=== PATIENT | female | born 2000 | race Asian ===

== ENCOUNTER 2020-01-20 19:44 | Emergency (ER) | payer OTHER ==
[2020-01-20 19:54] VITALS: BP 131/96
--- NOTE | 2020-01-20 22:00 | ED ---
Abdominal Pain/Female - HPI Summary HPI Summary: This pt is a 19 Y/O F presenting to [facility] with a CC of abdominal pain after being sent here from [facility] due to her laboratory results from 2019. She states that on 01/17/2020 she had abdominal cramping that increased by where she states that she was unable to stand correctly. The pain came slowly throughout the day began to dissipate on 01/19/2020. She states that on 01/16 she didnt eat but states that her appetite has returned on 01/18/2020. She states that when she walks or coughs the pain is increased. She reports that she used antacids on 01/18/2020 without good effect. She states that she has had fevers intermittently and has developed urinary symptoms such as dysuria that began today. She denies any PMHx that is pertinent. She has no aggravating or alleviating factors. Her LKMP was 2 weeks ago and was longer than usual. - History of Current Complaint Chief Complaint: Ekaterinain Stated Complaint: GENERAL PER PT Time Seen by Provider: 01/20/20 21:28 Hx Obtained From: Patient Hx Last Menstrual Period: 2 weeks ago ?: No Onset/Duration: Gradual Onset, Lasting Days - 4, Still Present - states pain only with coughing Timing: Constant Severity Initially: Severe Severity Currently: None Pain Intensity: 0 Pain Scale Used: 0-10 Numeric Location: Diffuse Radiates: No Character: Cramping Aggravating Factor(s): Movement Alleviating Factor(s): Nothing Associated Signs and Symptoms: Positive: Negative - headaches, SOB, Fever, Cough , Urinary Symptoms. Negative: Chest Pain, Nausea, Vomiting, Diarrhea Allergies/Adverse Reactions: Allergies Allergy/AdvReac Type Severity Reaction Status Date / Time No Known Allergies Allergy Verified 01/20/20 19:54 PMH/Surg Hx/FS Hx/Imm Hx Previously Healthy: Yes Endocrine/Hematology History: Denies: Hx Diabetes Cardiovascular History: Denies: Hx Cardiac Arrest Respiratory History: Denies: Hx Sleep Apnea Sensory History: Reports: Hx Contacts or Glasses Opthamlomology History: Reports: Hx Contacts or Glasses - Cancer History Hx Chemotherapy: No Hx Radiation Therapy: No - Surgical History Surgical History: None - Immunization History Immunizations Up to Date: Yes Infectious Disease History: No Infectious Disease History: Denies: Traveled Outside the [place] in Last 30 Days - Family History Known Family History: Negative: Hypertension, Diabetes - Social History Occupation: Student - [employer] Lives: Dormitory/Roommates Alcohol Use: Rare Hx Substance Use: No Substance Use Type: Reports: None Hx Tobacco Use: No Smoking Status (MU): Never Smoked Tobacco Review of Systems Positive: Fever Negative: Chest Pain Positive: Cough. Negative: Shortness Of Breath Positive: Abdominal Pain. Negative: Vomiting, Diarrhea, Nausea Positive: dysuria Negative: Headache All Other Systems Reviewed And Are Negative: Yes Physical Exam - Summary Physical Exam Summary: Constitutional: Well-developed, Well-nourished, Alert. (-) Distressed Skin: Warm, Dry HENT: Normocephalic; Atraumatic Eyes: Conjunctiva normal Neck: Musculoskeletal ROM normal neck. (-) JVD, (-) Stridor, (-) Tracheal deviation Cardio: Rhythm regular, rate normal, Heart sounds normal; Intact distal pulses; The pedal pulses are 2+ and symmetric. Radial pulses are 2+ and symmetric. (-) Murmur Pulmonary/Chest wall: Effort normal. (-) Respiratory distress, (-) Wheezes, (-) Rales Abd: Soft, (-) tenderness, (-) Distension, (-) Guarding, (-) Rebound Musculoskeletal: (-) Edema Lymph: (-) Cervical adenopathy Neuro: Alert, Oriented x3 Psych: Mood and affect Normal Triage Information Reviewed: Yes Vital Signs On Initial Exam: Initial Vitals Temp Pulse Resp BP Pulse Ox 98.2 F 76 16 131/96 100 01/20/20 19:48 01/20/20 19:48 01/20/20 19:48 01/20/20 19:48 01/20/20 19:48 Vital Signs Reviewed: Yes Procedures - Sedation Patient Received Moderate/Deep Sedation with Procedure: No Diagnostics - Vital Signs Vital Signs Temp Pulse Resp BP Pulse Ox 01/20/20 19:48 98.2 F 76 16 131/96 100 - Laboratory Lab Statement: Any lab studies that have been ordered have been reviewed, and results considered in the medical decision making process. - Radiology CXR Radiology Interpretation Completed By: ED Physician Summary of Radiographic Findings: No acute processes. Pending offical review. Abdominal Pain Fem Course/Dx - Course Course Of Treatment: This pt is a 19 Y/O F presenting to [facility] with a CC of abdominal pain after being sent here from [facility] due to her laboratory results from 01/19/2020. She states that on 01/17/2020 she had abdominal cramping that increased by 01/18/2020 where she states that she was unable to stand correctly. The pain came slowly throughout the day began to dissipate on 2019. Since 01/19/2020 she has been experiancing urinary symptoms. Her PE found no acute abnormalities. Her CXR found no acute processes. Her labratory results were negative. She will be discharged home with a Dx of abdominal pain. - Diagnoses Provider Diagnoses: Abdominal pain Discharge ED - Sign-Out/Discharge Documenting (check all that apply): Patient Departure - discharge - Discharge Plan Condition: Good Disposition: HOME Patient Education Materials: Acute Abdominal Pain (ED) Referrals: [facility] [Outside] Additional Instructions: The exact cause of your symptoms earlier in the week is not entirely clear, but we haven't turned up signs of a UTI or infection in the lung (pneumonia) on the tests we did tonight. Since you seem to be getting better on your own, I don't think we need to do any further testing tonight, but pay attention to your body and if you start to feel poorly again check in with [facility]. I did update Leisa Irvin on your visit tonight. - Billing Disposition and Condition Condition: GOOD Disposition: Home - Attestation Statements Document Initiated by Gabe: Yes Documenting Scribe: Preston Mcgee Provider For Whom Gabe is Documenting (Include Credential): Edgardo Villegas MD Scribe Attestation: I, Preston Mcgee, scribed for Edgardo Villegas MD on 01/21/20 at 0311. Scribe Documentation Reviewed: Yes Provider Attestation: The documentation as recorded by the Preston rush accurately reflects the service I personally performed and the decisions made by me, Edgardo Villegas MD Status of Scribrita Document: Viewed
[2020-01-20 22:39] LABS: Urine Appearance Cloudy; Urine Bilirubin Negative (Negative); Urine Blood Negative (Negative); Urine Color Yellow; Urine Glucose Negative (Negative); Urine Ketones Negative (Negative); Urine Nitrite Negative (Negative); Urine Protein Negative (Negative); Urine Specific Gravity 1.018 (1.010-1.030); Urine Urobilinogen Negative (Negative)
== END 2020-01-20 23:21 | disposition home or self-care (01) ==
LOC: ED 19:44
DX: R10.9 Unspecified abdominal pain (principal); R50.9 Fever, unspecified; R05 Cough; R30.0 Dysuria
CPT/HCPCS: 71046; 81003; 99282